=== PATIENT | male | born 1975 | race Caucasian/White ===

== ENCOUNTER 2021-05-27 22:20 | Emergency (ER) | payer OTHER ==
[~2021-05-27] VITALS: Ht 175.3 cm; Wt 104.5 kg
[2021-05-27] MEDS ORDERED: nitroGLYCERIN 0.4mg SUBLingual tab SL PRN (23:15)
[2021-05-28] MEDS ORDERED: ondansetron/PF 4mg/2ml inj IV ONE (00:05)
[2021-05-28] MEDS ORDERED: LORazepam 2 mg/ml vial IV ONE ×2 (00:05→00:25)
[2021-05-28] MEDS ORDERED: glucagon, human recombinant 1mg kit IV ONE (00:05)
--- NOTE | 2021-05-28 00:39 | NUR ---
gave full 2mg of Ativan as per Dr. Kuhn orders.
[2021-05-28] MEDS ORDERED: MIDAZolam 1 MG/ML 5ML VIAL ONE (01:53)
[2021-05-28] MEDS ORDERED: LIDOcaine Viscous 15ml cup ONE (01:53)
[2021-05-28] MEDS ORDERED: fentaNYL/PF 50MCG/1 ML 2ML syringe ONE (01:53)
[2021-05-28 01:54] VITALS: BP 134/97
--- NOTE | 2021-05-28 02:00 | NUR ---
to GI lab
[2021-05-28 02:26] VITALS: BP 116/81
[2021-05-28 02:36] VITALS: BP 127/79
[2021-05-28 02:46] VITALS: BP 117/75
[2021-05-28 02:51] VITALS: BP 117/79
[2021-05-28] MEDS ORDERED: PANT40TA54 PO (02:59)
--- NOTE | 2021-05-28 03:00 | NUR ---
patient back from EGD, VS wnl, patient asleep but arousable. at the bedside. Will cont to monitor.
[2021-05-28 03:35] VITALS: BP 120/75
== END 2021-05-28 03:36 | disposition home or self-care (01) ==
LOC: ER 22:22
DX: K22.2 Esophageal obstruction (principal); R13.0 Aphagia; Z88.5 Allergy status to narcotic agent; Z88.8 Allergy status to other drugs, medicaments and biological substances; Z79.899 Other long term (current) drug therapy
CPT/HCPCS: 43235; 96374; 96375; 99284; J1610; J2060; J2250; J2405; J3010; J7040; Z7512; 99152; A4620